=== PATIENT | male | born 1945 | race Caucasian/White ===

== ENCOUNTER 2017-11-08 00:32 | Day surgery (SDC) | payer MEDICARE, MEDICAID ==
[~2017-11-08] VITALS: Ht 185.4 cm; Wt 76.7 kg
[~2017-11-08 00:32] MED LIST: AMLO-96 PO; FLUO-177 PO; FLUO40CA67 PO; GABA-549 PO; HYDR-4309 PO; IMIQ1CRE5 TP; KET10 PO; LISI-362 PO; LISI20TA29 PO; LOSA-54 PO; LOSA100T67 PO; PENI-24 PO; PNEU0.5D3 IM; TAMS0.4C70 PO; TRAM-420 PO; VENL75CA4 PO
--- NOTE | 2017-11-08 03:30 | NACHTIGAL H&P ---
DATE OF ADMISSION: November 08, 2017 CHIEF COMPLAINT Bulge in the left groin. HISTORY OF PRESENT ILLNESS This is a 72-year-old male with a history of hypertension who had a right inguinal hernia repair in the past who noticed a bulge in his left groin for the last several years. Because of family obligations, he was unable to get it repaired. It is gradually getting bigger and causes him some pain. He was scheduled in July, however, at that time his blood pressure was out of control and that forced the procedure to be cancelled. He subsequently has been on antihypertensive and his blood pressure seems to be under control. ALLERGIES No known allergies. CURRENT MEDICATIONS 1. Tamsulosin. 2. Gabapentin 300 mg p.r.n. 3. Antihypertensive. PAST MEDICAL HISTORY/OPERATIONS 1. Appendectomy. 2. Right inguinal hernia repair. 3. Tonsillectomy. REVIEW OF SYSTEMS Significant for the history of hypertension. He denies any cardiac, pulmonary, liver or kidney disease, diabetes. No history of deep venous thrombosis. PHYSICAL EXAMINATION GENERAL: 72-year-old male in no acute distress. LUNGS: Clear. HEART: Regular rhythm. ABDOMEN: He has a large, visible, reducible left inguinal hernia. IMPRESSION Left inguinal hernia. PLAN Repair. We discussed the procedure, complications and recovery time. He seems to understand and wishes to proceed. YUE
[2017-11-08] MEDS ORDERED: ROPIVACAINE 0.2% 20 ML VIAL ONE (06:46)
[2017-11-08 08:46] LABS: PLATELET COUNT, AUTOMATED 216 K/uL (150-450)
[2017-11-08 09:11] VITALS: BP 154/100
[2017-11-08] MEDS ORDERED: fentaNYL CITR 250 MCG/5 ML AMP ONE (09:19)
[2017-11-08] MEDS ORDERED: LIDOCAINE 2% IV 100 MG/5ML SYR ONE (09:23)
[2017-11-08] MEDS ORDERED: LIDOCAINE/SOD BICARB 8.4% SYR ID ONE (09:30)
[2017-11-08] MEDS ORDERED: FAMOTIDINE 20 MG TAB PO ONE (09:30)
[2017-11-08] MEDS ORDERED: NORMOSOL R SOLN(*) 1000 ML BAG 1,000 ML IV PRN (09:30)
[2017-11-08] MEDS ORDERED: ceFAZolin(*) 2GM/D5W 50ML 50 ML IVPB ONE (09:30)
[2017-11-08] MEDS ORDERED: MIDAZOLAM 2 MG/2 ML VIAL IVP PRN (09:30)
[2017-11-08] MEDS ORDERED: PROPOFOL EMUL(*) 10MG/ML 20 ML 20 ML ONE (09:32)
--- NOTE | 2017-11-08 09:51 | Post Operative Progress Note ---
Post Operative Progress Note Date: Nov 08, 2017 Time: 11:02 Surgeon: shamika Anesthesia: dr linares Pre-Op Diagnosis: left inguinal hernia Post-Op Diagnosis: same, direct Procedure(s): left inguinal hernia kugel medium patch MARICEL ERNANDEZ MD Nov 08, 2017 09:51
[2017-11-08] MEDS ORDERED: KET10 PO (09:52)
[2017-11-08] MEDS ORDERED: HYDR-4309 PO (09:52)
--- NOTE | 2017-11-08 09:54 | Short(Outpt) Discharge Summary ---
Discharge Summary Reason for Hosp/Final Diag: (1) Inguinal hernia, left Hospital Course & Plan: left inguinal hernia repair kugel Departure Discharge to: Home Discharge Instructions Home Meds Active Scripts Hydrocodone Bit/Acetaminophen (NORCO 5-325 TABLET) 1 Each Tablet, 1 EACH PO Q4H Y for PAIN, #30 TAB Prov:MARICEL ERNANDEZ MD 11/08/17 Ketorolac Tromethamine (KETOROLAC TROMETHAMINE) 10 Mg Tab, 10 MG PO Q6H, #20 TAB Prov:MARICEL ERNANDEZ MD 11/08/17 Reported Medications Amlodipine Besylate (AMLODIPINE BESYLATE) 5 Mg Tablet, 1 TAB PO QDAY, TAB 10/31/17 Losartan/Hydrochlorothiazide (LOSARTAN-HCTZ 100-25 MG TAB) 1 Each Tablet, 1 EACH PO QDAY 10/31/17 Losartan Potassium (LOSARTAN POTASSIUM) 100 Mg Tablet, 100 MG PO QDAY 08/15/17 Tamsulosin Hcl (TAMSULOSIN HCL) 0.4 Mg Cap.er.24h, 0.4 MG PO QDAY, CAP 08/15/17 Gabapentin (GABAPENTIN) 300 Mg Capsule, 300 MG PO 6xd Y for PAIN, CAPSULE 08/15/17 Diet: Regular Activity: As Tolerated Special Instructions: ice to incision for 48 hours remove bandage and shower to see me in one week, call [phone] for apt MARICEL ERNANDEZ MD Nov 08, 2017 09:54
[2017-11-08] MEDS ORDERED: DEXAMETHASONE SOD 4 MG/ML VIAL ONE (10:14)
[2017-11-08] MEDS ORDERED: ONDANSETRON 4 MG/2 ML VIAL ONE (10:15)
[2017-11-08] MEDS ORDERED: KETOROLAC 30 MG/ML VIAL ONE (10:15)
[2017-11-08] MEDS ORDERED: ROCURONIUM BROM 10 MG/ML 5 ML ONE (10:30)
[2017-11-08] MEDS ORDERED: EPINEPHrine HCL 30 MG/30 ML ONE (10:30)
[2017-11-08] MEDS ORDERED: SUGAMMADEX SOD 200 MG/2 ML SDV ONE (10:32)
[2017-11-08] MEDS ORDERED: PHENYLEPHRINE/NS/PF 0.4MG/10ML ONE (10:41)
[2017-11-08] MEDS ORDERED: MEPERIDINE 50 MG/ML SYR ONE (11:39)
[2017-11-08 12:02] VITALS: BP 151/104
[2017-11-08 12:15] VITALS: BP 150/92
[2017-11-08 12:30] VITALS: BP 154/103
[2017-11-08] MEDS ORDERED: APAP/HYDROCODONE 325/5 TAB ONE (12:37)
[2017-11-08 12:40] VITALS: BP 136/84
[2017-11-08 12:43] VITALS: BP 138/93
--- NOTE | 2017-11-08 21:14 | OPERATIVE REPORT 1 ---
EVENT DATE: November 08, 2017 SURGEON: Francisco Jeong MD ANESTHESIOLOGIST: Michael Orozco MD ANESTHESIA: General. PREOPERATIVE DIAGNOSIS Left inguinal hernia. POSTOPERATIVE DIAGNOSIS Left direct inguinal hernia. PROCEDURE PERFORMED Left inguinal hernia repair, Kugel technique. DESCRIPTION OF PROCEDURE The patient was placed in the supine position and given general anesthetic. His genitalia and left lower quadrant were prepped and draped in a sterile fashion. An incision was made half way between the anterior superior iliac spine and the pubic tubercle following skin lines, carried down through the skin and subcutaneous tissue, and exposed the external oblique. It was opened in the direction of its fibers. The internal oblique was spread in the direction of its fibers. The transversalis fascia was incised vertically. We raised inferior epigastric vessels, dissected in the preperitoneal space, and created a pocket for the mesh medially, superiorly, and laterally. We then exposed the pubic tubercle and Clem ligament. He had a large direct inguinal hernia. This was dissected out. We then dissected the peritoneum off the cord structures and back passed where the vas deferens and the cord structures bifurcated. There was no indirect inguinal hernia. We then placed a medium Kugel patch into position. It covered the pubic tubercle and Clem ligament and extended past the internal ring. It laid with a nice gentle curve. No sharp angulations. The transversalis fascia was reapproximated with 3-0 Vicryl incorporating the mesh. The internal oblique was closed with a running 3-0 Vicryl. The external oblique was closed with running 3-0 Vicryl. We injected 20 mL of 0.2% ropivacaine in the muscle and subcutaneous tissue. The subcutaneous tissue was reapproximated with 4-0 Maxon. The skin was closed with 4-0 Maxon. Steri-Strips and an Airstrip were placed. The patient tolerated the procedure well. No apparent complication. [facility]
== END 2017-11-08 11:56 | disposition home or self-care (01) ==
LOC: OR 00:32
PROVIDERS: ATTEND Surgery
DX: K40.90 Unilateral inguinal hernia, without obstruction or gangrene, not specified as recurrent (principal)
CPT/HCPCS: 36415; 49505; 85025; A9270; J0171; J1100; J1885; J2001; J2175; J2370; J2405; J2704; J2795; J3010; 82310; 82374; 82435; 82565; 82947; 84132; 84295; 84520; J0690

== ENCOUNTER → 2018-03-06 | Outpatient (CLI) | payer MEDICARE, MEDICAID ==
--- NOTE | 2018-03-06 17:08 | RADIOLOGY IMAGING REPORT ---
[facility] PATIENT NAME: Marco A Mcbride : 1945 MR: [id number] V: [id number] EXAM DATE: ORDERING PHYSICIAN: MACK DUQUE TECHNOLOGIST: Location: [facility] [place] Patient: Marco A Mcbride : 1945 Visit/Account:[id number] Date of Sevice: 03/06/2018 KNEE 3 VIEW LEFT HISTORY: Continued left knee pain after stepping off curb one month ago. ADDITIONAL HISTORY: None. COMPARISON: None. FINDINGS: 3 views were obtained of the left knee. There is minimal narrowing of the medial joint space compart ment of the knee. Tiny spurs project off the tibial spines. Lateral joint space compartments well-m aintained. Patellofemoral joint is of normal caliber. There could be a small joint effusion. There is no evidence of acute or subacute fracture. Bony mineralization is normal. IMPRESSION: 1. Minimal degenerative changes in the medial compartment of the knee. 2. No evidence of acute osseous abnormality. 3. Possible small joint effusion. Report Dictated By: Maeve San MD at 03/06/2018 5:04 PM Report E-Signed By: Maeve San MD at 03/06/2018 5:05 PM WSN:MILY
== END ==
LOC: RAD 14:59
PROVIDERS: ATTEND Family Medicine
DX: M17.12 Unilateral primary osteoarthritis, left knee (principal); M25.462 Effusion, left knee

== ENCOUNTER 2019-02-26 18:51 | Emergency (ER) | payer MEDICARE, MEDICAID ==
[~2019-02-26 18:51] MED LIST changes: -GABA-551
--- NOTE | 2019-02-26 18:52 | ER Report ---
History and Physical Time Seen By MD: 18:52 Hx. of Stated Complaint: Alcohol intoxication. HPI/ROS CHIEF COMPLAINT: Alcohol intoxication HISTORY OF PRESENT ILLNESS: 73 year old male presents to ED via EMS and police department due to public alcohol intoxication. Patient was brought in from the [place]; he was there since 4pm. Patient reports that he drank 1/2 bottle of vodka. Denies pain. Reports no other substance use. REVIEW OF SYSTEMS: Respiratory: No cough, no dyspnea. Cardiovascular: No chest pain, no palpitations. Gastrointestinal: No vomiting, no abdominal pain. Musculoskeletal: No back pain. Allergies: Coded Allergies: No Known Drug Allergies (Unverified , 02/26/19) Home Meds Reported Medications Gabapentin (GABAPENTIN) 400 Mg Capsule, TID 02/26/19 Amlodipine Besylate (AMLODIPINE BESYLATE) 5 Mg Tablet, 1 TAB PO QDAY, TAB 10/31/17 Losartan/Hydrochlorothiazide (LOSARTAN-HCTZ 100-25 MG TAB) 1 Each Tablet, 1 EACH PO QDAY 10/31/17 Tamsulosin Hcl (TAMSULOSIN HCL) 0.4 Mg Cap.er.24h, 0.4 MG PO QDAY, CAP 08/15/17 Discontinued Reported Medications Losartan Potassium (LOSARTAN POTASSIUM) 100 Mg Tablet, 100 MG PO QDAY 08/15/17 Gabapentin (GABAPENTIN) 300 Mg Capsule, 300 MG PO 6xd PRN for PAIN, CAPSULE 08/15/17 Discontinued Scripts Hydrocodone Bit/Acetaminophen (NORCO 5-325 TABLET) 1 Each Tablet, 1 EACH PO Q4H PRN for PAIN, #30 TAB Prov:MARICEL ERNANDEZ MD 11/08/17 Ketorolac Tromethamine (KETOROLAC TROMETHAMINE) 10 Mg Tab, 10 MG PO Q6H, #20 TAB Prov:MARICEL ERNANDEZ MD 11/08/17 Past Medical/Surgical History Past medical hx of HTN, prostate problems, neuropathy, hx of substance abuse for 20 years. Surgical hx of hernia repair and appendectomy. Reviewed Nurses Notes: Yes Hx Smoking: No Smoking Status: Never Smoker Hx Alcohol Use: Yes (1 bottle of wine weekly) Constitutional Vital Sign - Last 24 Hours 02/26/19 02/26/19 02/26/19 18:51 19:41 20:00 Temp 98.0 Pulse 90 100 Resp 16 16 B/P (MAP) 106/81 129/92 (104) Pulse Ox 91 91 O2 Delivery Room Air Room Air O2 Flow Rate 1.0 Physical Exam General Appearance: The patient is inebriated, has no immediate need for airway protection and no current signs of toxicity. Eyes: Pupils equal and round no injection. Respiratory: Chest is non tender, lungs are clear to auscultation. Cardiac: regular rate and rhythm Gastrointestinal: Abdomen is soft and non tender, no masses, bowel sounds normal. Musculoskeletal: Neck: Neck is supple and non tender. Neuro: Patient appears intoxicated with slurred speech and drowsiness. Extremities have full range of motion and are non tender. Skin: No rashes or lesions. DIFFERENTIAL DIAGNOSIS: After history and physical exam differential diagnosis was considered for alcohol intoxication. Medical Decision Making Data Points Result Diagram: 02/26/19189902/26/191899 Laboratory Hematology Test 02/26/19 19:00 Red Blood Count 5.13 M/uL (4.00-5.60) Mean Corpuscular Volume 94.1 fL (80.0-96.0) Mean Corpuscular Hemoglobin 31.9 pg (26.0-33.0) Mean Corpuscular Hemoglobin Concent 33.9 g/dL (32.0-36.0) Red Cell Distribution Width 15.5 % (11.5-14.5) Mean Platelet Volume 8.2 fL (7.2-11.1) Neutrophils (%) (Auto) 54.4 % (39.4-72.5) Lymphocytes (%) (Auto) 35.1 % (17.6-49.6) Monocytes (%) (Auto) 9.1 % (4.1-12.4) Eosinophils (%) (Auto) 0.8 % (0.4-6.7) Basophils (%) (Auto) 0.6 % (0.3-1.4) Nucleated RBC Relative Count (auto) 0.0 /100WBC Neutrophils # (Auto) 5.0 K/uL (2.0-7.4) Lymphocytes # (Auto) 3.2 K/uL (1.3-3.6) Monocytes # (Auto) 0.8 K/uL (0.3-1.0) Eosinophils # (Auto) 0.1 K/uL (0.0-0.5) Basophils # (Auto) 0.1 K/uL (0.0-0.1) Nucleated RBC Absolute Count (auto) 0.00 K/uL Sodium Level 143 mmol/L (137-145) Potassium Level 4.2 mmol/L (3.5-5.0) Chloride Level 107 mmol/L (98-107) Carbon Dioxide Level 21 mmol/L (22-30) Blood Urea Nitrogen 20 mg/dl (9-21) Creatinine 1.60 mg/dl (0.66-1.25) Glomerular Filtration Rate Calc 42.8 Random Glucose 108 mg/dl (75-110) Calcium Level 9.3 mg/dl (8.4-10.2) Total Bilirubin 0.5 mg/dl (0.2-1.3) Aspartate Amino Transf (AST/SGOT) 42 U/L (0-35) Alanine Aminotransferase (ALT/SGPT) 39 U/L (0-56) Alkaline Phosphatase 77 U/L (0-126) Total Protein 7.5 g/dl (6.3-8.2) Albumin 4.4 g/dl (3.5-5.0) Serum Alcohol 158 mg/dl Chemistry Test 02/26/19 19:00 White Blood Count 9.2 k/uL (4.5-11.0) Red Blood Count 5.13 M/uL (4.00-5.60) Hemoglobin 16.4 g/dL (14.0-18.0) Hematocrit 48.2 % (42.0-52.0) Mean Corpuscular Volume 94.1 fL (80.0-96.0) Mean Corpuscular Hemoglobin 31.9 pg (26.0-33.0) Mean Corpuscular Hemoglobin Concent 33.9 g/dL (32.0-36.0) Red Cell Distribution Width 15.5 % (11.5-14.5) Platelet Count 352 K/uL (150-450) Mean Platelet Volume 8.2 fL (7.2-11.1) Neutrophils (%) (Auto) 54.4 % (39.4-72.5) Lymphocytes (%) (Auto) 35.1 % (17.6-49.6) Monocytes (%) (Auto) 9.1 % (4.1-12.4) Eosinophils (%) (Auto) 0.8 % (0.4-6.7) Basophils (%) (Auto) 0.6 % (0.3-1.4) Nucleated RBC Relative Count (auto) 0.0 /100WBC Neutrophils # (Auto) 5.0 K/uL (2.0-7.4) Lymphocytes # (Auto) 3.2 K/uL (1.3-3.6) Monocytes # (Auto) 0.8 K/uL (0.3-1.0) Eosinophils # (Auto) 0.1 K/uL (0.0-0.5) Basophils # (Auto) 0.1 K/uL (0.0-0.1) Nucleated RBC Absolute Count (auto) 0.00 K/uL Glomerular Filtration Rate Calc 42.8 Calcium Level 9.3 mg/dl (8.4-10.2) Total Bilirubin 0.5 mg/dl (0.2-1.3) Aspartate Amino Transf (AST/SGOT) 42 U/L (0-35) Alanine Aminotransferase (ALT/SGPT) 39 U/L (0-56) Alkaline Phosphatase 77 U/L (0-126) Total Protein 7.5 g/dl (6.3-8.2) Albumin 4.4 g/dl (3.5-5.0) Serum Alcohol 158 mg/dl Toxicology Test 02/26/19 19:00 Serum Alcohol 158 mg/dl ED Course/Re-evaluation ED Course Upon arrival to the ER via EMS, patient was admitted to an exam room, hx and physical obtained, differentials considered. Patient brought to EMS and police department due to public alcohol intoxication. Patient was brought in from the [facility]; he was there since 4pm. Patient reports that he drank 1/2 bottle of vodka. Denies pain. Reports no other substance use. PERRLA, lungs clear, heart rate and rhythm regular. Patient appears intoxicated, slurred speech and drowsy. IV and fluids were started in the EMS. CBC, CMP, and alcohol level drawn. Alcohol level 158. All other labs unremarkable. Patient discharged to police department. Decision to Disposition Date: Feb 26, 2019 Decision to Disposition Time: 19:52 Depart Departure Latest Vital Signs Vital Signs Date Time Temp Pulse Resp B/P (MAP) Pulse Ox O2 Delivery O2 Flow Rate FiO2 02/26/19 20:00 100 16 129/92 (104) 91 Room Air 02/26/19 19:41 1.0 02/26/19 18:51 98.0 Impression: Primary Impression: Alcohol intoxication Condition: Improved Disposition: HOME OR SELF-CARE Referrals: MACK DUQUE MD (PCP) Patient Instructions: Alcohol Intoxication (ED) Additional Instructions: Increase fluid intake. Get plenty of rest. Follow up with your primary care provider. If there are any concerns you may see the health care at the sn[facility] center. Return to the ER if condition worsens. Limit alcohol use. Problem Qualifiers Primary Impression: Alcohol intoxication Complication of substance-induced condition: uncomplicated Qualified Codes: F10.920 - Alcohol use, unspecified with intoxication, uncomplicated [facility] Feb 26, 2019 18:52
[2019-02-26] MEDS ORDERED: GABA-551 (19:01)
[2019-02-26] MEDS ORDERED: EMS NS 0.9%(*) 1000 ML BAG 1,000 ML IV ONE (19:10)
[2019-02-26 19:19] LABS: PLATELET COUNT, AUTOMATED 352 K/uL (150-450)
[2019-02-26 20:00] VITALS: BP 129/92
== END 2019-02-26 20:05 | disposition home or self-care (01) ==
LOC: ER 18:54
DX: F10.920 Alcohol use, unspecified with intoxication, uncomplicated (principal)
CPT/HCPCS: 85025; 96360; 99283; G0480; 80320; 82040; 82247; 82310; 82374; 82435; 82565; 82947; 84075; 84132; 84155; 84295; 84450; 84460; 84520

== ENCOUNTER → 2019-02-26 | Outpatient (CLI) | payer MEDICARE, MEDICAID ==
[~2019-02-26] MED LIST changes: +AMLO-125 PO; -AMLO-96 PO; +GABA-551; -HYDR-4309 PO; +HYDR-653 PO; -LOSA100T67 PO; +LOSA100T75 PO
== END ==
LOC: AMB 18:26
PROVIDERS: ATTEND Nurse Practitioner
DX: R55 Syncope and collapse (principal); F10.129 Alcohol abuse with intoxication, unspecified; R47.81 Slurred speech; R09.02 Hypoxemia
CPT/HCPCS: A0425; A0427

== ENCOUNTER → 2019-03-19 | Outpatient (CLI) | payer MEDICARE, MEDICAID ==
[~2019-03-19] MED LIST changes: +GABA-551
[2019-03-19 16:12] LABS: PLATELET COUNT, AUTOMATED 246 K/uL (150-450)
--- NOTE | 2019-03-19 17:56 | EKG ---
FACILITY: [facility] PATIENT NAME: KRYSTIN DAY : [id number] MR: [id number] V: [id number] EXAM DATE: ORDERING PHYSICIAN: MARIAMA GONZALEZ TECHNOLOGIST: BRE Test Reason : HYPERTENSION Blood Pressure : / mmHG Vent. Rate : 086 BPM Atrial Rate : 086 BPM P-R Int : 186 ms QRS Dur : 106 ms QT Int : 400 ms P-R-T Axes : 049 018 032 degrees QTc Int : 478 ms Poor data quality, interpretation may be adversely affected Normal sinus rhythm Septal infarct (cited on or before 16-AUG-2017) Abnormal ECG When compared with ECG of 16-AUG-2017 07:14, No significant change was found Confirmed by MARIAMA GONZALEZ ([id number]) on 03/20/2019 9:25:07 AM Referred By: LISA Confirmed By:MARIAMA GONZALEZ
== END ==
LOC: LAB 15:36
PROVIDERS: ATTEND Internal Medicine
DX: I10 Essential (primary) hypertension (principal); F10.929 Alcohol use, unspecified with intoxication, unspecified; R94.31 Abnormal electrocardiogram [ECG] [EKG]
CPT/HCPCS: 36415; 83735; 84443; 85025; G0103; 82040; 82247; 82310; 82374; 82435; 82465; 82565; 82947; 83718; 84075; 84132; 84153; 84155; 84295; 84450; 84460; 84478; 84520